=== PATIENT | female | born 1990 | race African-American/Black ===

== ENCOUNTER 2024-02-09 15:45 | Emergency (ER) | payer OTHER, SELFPAY ==
[2024-02-09 15:49] VITALS: BP 147/80; PULSE 90; TEMP 36.6; O2SAT 100; BMI 36.9
--- NOTE | 2024-02-09 16:02 | ED_ITS ---
HPI HPI - Back Pain/Injury General Chief Complaint: Back Pain/Injury Stated Complaint: BACK PAIN Time Seen by Provider: 02/09/24 15:55 Source: patient Mode of arrival: walk-in Limitations: no limitations History of Present Illness HPI Narrative: 33-year-old female presents to the emergency department for bilateral lower back pain. It started about a month ago. She feels that she hurt it at work and she has been doing a twisting motion lifting some heavy items. There was no direct injury such as a fall. It does not seem to radiate and she has had no dysuria or hematuria. Certain positions make it worse. Related Data Home Medications ?Medication ?Instructions ?Recorded ?Confirmed dextroamphetamine-amphetamine 30 40 mg PO DAILY 02/09/24 02/09/24 mg tablet (Adderall) Previous Rx's ?Medication ?Instructions ?Recorded ibuprofen 800 mg tablet 800 mg PO Q8H PRN pain #20 tabs 02/09/24 methocarbamol 500 mg tablet 500 mg PO Q8H PRN pain #20 tabs 02/09/24 Allergies Allergy/AdvReac Type Severity Reaction Status Date / Time No Known Drug Allergies Allergy Verified 02/09/24 15:53 Opioid HPI Opioid Management Most Recent Opioid Data: Last Pain Scale 3 02/09/24 16:05 Review of Systems ROS Narrative A ten point review of systems is negative except as noted above. Exam Narrative Exam Narrative: Nurses note and vital signs reviewed and patient is not hypoxic. General: The patient appears well and in no apparent distress. Patient is resting comfortably on cart. Skin: Warm, dry, no pallor noted. There is no rash noted. Head: Normocephalic, atraumatic Eye: Normal conjunctiva, no drainage Ears, Nose, Mouth, and Throat: oral mucosa is moist. Nares patent. Cardiovascular: Regular Rate and Rhythm Respiratory: Patient is in no distress, no accessory muscle use, lungs are clear to auscultation, no wheezing, rales or rhonchi Back: No bruise or rash to her back. No palpable tenderness. GI: Soft and nontender Musculoskeletal: No joint swelling Neurological: Motor strength intact in her lower extremity Psychiatric: Cooperative Constitutional Vital Signs, click to edit/add: Last Vital Signs Temp 97.9 F 02/09/24 15:49 Pulse 90 02/09/24 15:49 Resp 18 02/09/24 15:49 BP 147/80 H 02/09/24 15:49 Pulse Ox 100 02/09/24 15:49 O2 Del Method Room Air 02/09/24 15:49 Course Vital Signs Vital signs: Vital Signs Temperature 97.9 F 02/09/24 15:49 Pulse Rate 90 02/09/24 15:49 Respiratory Rate 18 02/09/24 15:49 Blood Pressure 147/80 H 02/09/24 15:49 Pulse Oximetry 100 02/09/24 15:49 Oxygen Delivery Method Room Air 02/09/24 15:49 Temperature 97.9 F 02/09/24 15:49 Pulse Rate 90 02/09/24 15:49 Respiratory Rate 18 02/09/24 15:49 Blood Pressure 147/80 H 02/09/24 15:49 Pulse Oximetry 100 02/09/24 15:49 Oxygen Delivery Method Room Air 02/09/24 15:49 MDM - Back Pain/Injury MDM Narrative Medical decision making narrative: X-rays are negative per radiologist and she will be treated symptomatically. My clinical impression is that she has muscle strain. Treatment diagnosis and follow-up were discussed with the patient. Differential Diagnosis Differential diagnosis: Likely lumbar radiculopathy and strain of lumbar region Imaging Data Lumbar x-ray: Radiologist's impression: Procedure: XR lumbar spine 2-3V IMAGES REVIEWED: XR lumbar spine 2-3V COMPARISON: None available. CLINICAL INDICATION: Atraumatic pain FINDINGS/IMPRESSION: Unremarkable radiographic appearance of the lumbar spine. Electronically authenticated by: MATT SOLIS Date: 02/09/2024 17:12 Discharge Plan Discharge Stand Alone Forms: Portal Instructions Chief Complaint: Back Pain/Injury Clinical Impression: Lumbar strain Patient Disposition: Home, Self-Care Time of Disposition Decision: 17:26 Condition: Good Mode of Transportation: Private Vehicle Prescriptions / Home Meds: New methocarbamol 500 mg tablet 500 mg PO Q8H PRN (Reason: pain) Qty: 20 0RF ibuprofen 800 mg tablet 800 mg PO Q8H PRN (Reason: pain) Qty: 20 0RF No Action dextroamphetamine-amphetamine [Adderall] 30 mg tablet 40 mg PO DAILY Print Language: Turkish Instructions: Muscle Strain (ED), Back Pain (ED) Referrals: GRACIELA JUAN [Primary Care Provider] - 1 week
--- NOTE | 2024-02-09 16:09 | XR_ITS ---
The [address] [address] Patient Name: EUSEBIA WARREN MRN: [id number] date: 1990 Sex: F Assigned Patient Location: ER Current Patient Location: ED.MAIN Accession/Order Number: [id number] Exam Date: 02/09/2024 16:04 Report Date: 02/09/2024 17:12 At the request of: OLGA PÉREZ Procedure: XR lumbar spine 2-3V IMAGES REVIEWED: XR lumbar spine 2-3V COMPARISON: None available. CLINICAL INDICATION: Atraumatic pain FINDINGS/IMPRESSION: Unremarkable radiographic appearance of the lumbar spine. Electronically authenticated by: MATT SOLIS Date: 02/09/2024 17:12
== END 2024-02-09 17:55 | disposition home or self-care (01) ==
PROVIDERS: Emergency Provider Emergency Medicine; PCP Family Medicine
DX: S39.012A Strain of muscle, fascia and tendon of lower back, initial encounter (principal); X50.0XXA Overexertion from strenuous movement or load, initial encounter
CPT/HCPCS: 72100; 99283